=== PATIENT | male | born 1945 | race Caucasian/White ===

== ENCOUNTER 2018-06-12 07:20 | Inpatient (IN) ==
[2018-06-12] MEDS ORDERED: ONDANSETRON 4 MG/2 ML VIAL IV STA (07:45)
[2018-06-12] MEDS ORDERED: HYDROmorphone 2 MG/1 ML VIAL IV STA (07:45)
[2018-06-12] MEDS ORDERED: ALBUTEROL 2.5 MG/3 ML NEB RESP TX STA (07:47)
[2018-06-12 09:09] LABS: Basophils % 0.2 % (0.0-0.8); Hematocrit 48.2 VOL% (42.0-52.0); Hemoglobin 16.3 GM/DL (14.0-18.0); Immature Granulocytes % 0.5 %; Immature Granulocytes Absolute 0.06 #; Lymphocytes # 0.6 10*3/uL (1.4-4.0); Lymphocytes % 4.8 % (21.2-54.2); Mean Corpuscular HGB Conc 33.8 GM/DL (32-36); Mean Corpuscular Hemoglobin 31 PG (27-34); Mean Corpuscular Volume 91.5 FL (87-102); Mean Platelet Volume 9.6 FL (9.6-12.0); Monocytes # 0.6 10*3/uL (0.11-0.8); Monocytes % 4.5 % (1.7-12.7); Neutrophils # 11.7 10*3/uL (1.4-7.4); Platelet Count 175 T/CUMM (130-400); Red Blood Count 5.27 MC/CUMM (3.8-5.5); Red Cell Distribution Width 13.2 % (9.3-17.3)
[2018-06-12 09:21] LABS: INR 3.5
[2018-06-12 09:22] LABS: PT Patient Result 35.2 SECS
[2018-06-12 09:30] LABS: Band Neutrophils 2 % (0-10); Lymphocytes 5 % (20-55); Segmented Neutrophils 91 % (50-85); Total Cells Counted 100
[2018-06-12 09:31] LABS: Calcium 8.8 MG/DL (8.5-10.1); Hypochromasia 1+; Microcytosis Slight; Osmolality,Calculated 261.7 MOS/KG (273-304); Ovalocytes Slight; Platelet Estimate Adequate; Total Protein 7.8 G/DL (6.4-8.3)
[2018-06-12] MEDS ORDERED: cefTRIAXone 1,000 MG in SODIUM CHLORIDE 0.9% 100 ML IV STA (09:37)
[2018-06-12] MEDS ORDERED: ACETAMINOPHEN 325 MG TABLET PO PRN (11:46)
[2018-06-12] MEDS ORDERED: traZODone 50 MG TABLET PO PRN (11:46)
[2018-06-12] MEDS ORDERED: NICOTINE 21 MG/24 HR PATCH TRANSDERM PRN (11:46)
[2018-06-12] MEDS ORDERED: BISACODYL 5 MG TABLET PO PRN (11:46)
[2018-06-12] MEDS ORDERED: guaiFENesin/DM ER 600-30 MG TABLET PO PRN (11:46)
[2018-06-12 11:50] LABS: Apearance,Urine CLEAR (Clear); Bilirubin,Urine Negative (Negative); Blood, Urine Negative (Negative); Glucose,Urine (UA) Negative (Negative); Ketones,Urine Negative (Negative); Mucus,Urine Occasional /LPF (Occasional); Nitrite,Urine Negative (Negative); Protein,Urine 30 MG/DL; RBC,Urine <1 /HPF (0-4); Urine Color Straw (Yellow); Urine Specific Gravity 1.006 (1.001-1.035); Urine Urobilinogen < 2.0 EU/DL (0.2-1.0); WBC,Urine <1 /HPF (0-6)
[2018-06-12] MEDS: ALBUTEROL/IPRATROPIUM 3 ML NEB RESP TX SCH ×2 (13:05→19:25)
[2018-06-12] MEDS: MAGNESIUM OXIDE 400 MG TABLET PO SCH ×2 (14:46→20:49)
[2018-06-12] MEDS ORDERED: BUMETANIDE 1 MG TABLET PO SCH (16:00)
[2018-06-12] MEDS ORDERED: CARVEDILOL 12.5 MG TABLET PO SCH (17:00)
[2018-06-12] MEDS ORDERED: ALBUTEROL/IPRATROPIUM 3 ML NEB RESP TX SCH (19:00)
[2018-06-12] MEDS ORDERED: ATORVASTATIN 20 MG TABLET PO SCH (21:00)
[2018-06-13] MEDS: ALBUTEROL/IPRATROPIUM 3 ML NEB RESP TX SCH ×2 (00:24→07:00)
[2018-06-13] MEDS ORDERED: PROPOFOL 1,000 MG/100 ML BOTTLE IV ONE (05:04)
[2018-06-13 05:49] LABS: Basophils % 0.3 % (0.0-0.8); Eosinophils % 0.1 % (0.00-10.9); Hematocrit 45.7 VOL% (42.0-52.0); Hemoglobin 13.9 GM/DL (14.0-18.0); Immature Granulocytes % 1.5 %; Lymphocytes % 28.9 % (21.2-54.2); Mean Corpuscular HGB Conc 30.4 GM/DL (32-36); Mean Corpuscular Hemoglobin 30 PG (27-34); Mean Corpuscular Volume 98.3 FL (87-102); Mean Platelet Volume 10.8 FL (9.6-12.0); Monocytes # 0.9 10*3/uL (0.11-0.8); Monocytes % 6.4 % (1.7-12.7); Neutrophils # 8.7 10*3/uL (1.4-7.4); Neutrophils % 62.8 % (38.7-73.9); Platelet Count 135 T/CUMM (130-400); Red Blood Count 4.65 MC/CUMM (3.8-5.5); Red Cell Distribution Width 13.7 % (9.3-17.3); White Blood Count 13.8 T/CUMM (4-12)
[2018-06-13 05:51] LABS: ABG HCO3 16.6 MMOL/L (20-26); ABG Oxygen Saturation 95.8 % (95-100); ABG PCO2 54.1 MM HG (35-48); ABG TCO2 17.6 MMOL/L (23-27)
[2018-06-13] MEDS ORDERED: ASPIRIN EC 325 MG TABLET PO ONE ×2 (05:53→06:30)
[2018-06-13 05:54] LABS: ABG PH 7.168 (7.35-7.45)
[2018-06-13] MEDS ORDERED: SODIUM BICARBONATE 50 MEQ/50 ML SYRINGE IV ONE (05:54)
[2018-06-13 06:01] LABS: Calcium 8.8 MG/DL (8.5-10.1); Osmolality,Calculated 264.8 MOS/KG (273-304)
[2018-06-13] MEDS ORDERED: DOPamine 800 MG/250 ML PREMIX IV PRN (06:20)
[2018-06-13] MEDS ORDERED: SODIUM CHLORIDE 0.9% 1,000 ML IV ONE ×2 (06:20→06:50)
[2018-06-13] MEDS ORDERED: NOREPINEPHRINE 8 MG in SODIUM CHLORIDE 0.9% 242 ML IV PRN (06:20)
[2018-06-13] MEDS ORDERED: NOREPINEPHRINE 4 MG/4 ML VIAL IV ONE ×2 (06:27→10:12)
[2018-06-13] MEDS ORDERED: fentaNYL 100 MCG/2 ML VIAL IV ONE (06:30)
[2018-06-13] MEDS ORDERED: PROPOFOL 1,000 MG/100 ML BOTTLE IV SCH (06:30)
[2018-06-13] MEDS ORDERED: PIPERACILLIN/TAZOBACTAM 3,375 MG in SODIUM CHLORIDE 0.9% 100 ML IV SCH (06:30)
[2018-06-13] MEDS ORDERED: SODIUM BICARB INJ 150 MEQ in STERILE WATER INJ 850 ML IV SCH (07:00)
[2018-06-13 07:09] LABS: ABG Base Excess -1.9 MMOL/L (-2.5-2.5); ABG HCO3 22.7 MMOL/L (20-26); ABG Oxygen Saturation 92.1 % (95-100); ABG PCO2 63.3 MM HG (35-48); ABG PH 7.246 (7.35-7.45); ABG TCO2 24.1 MMOL/L (23-27)
[2018-06-13] MEDS ORDERED: DEXMEDETOMIDINE 200 MCG in SODIUM CHLORIDE 0.9% 48 ML IV PRN (07:15)
[2018-06-13] MEDS ORDERED: fentaNYL INJ 1,250 MCG in SODIUM CHLORIDE 0.9% 225 ML IV PRN (07:16)
[2018-06-13] MEDS ORDERED: PHENYLEPHRINE DRIP 40 MG/250 ML PREMIX IV ONE (07:20)
[2018-06-13 07:24] VITALS: BP 128/87
[2018-06-13] MEDS ORDERED: methylPREDNISolone SOD SUC 40 MG/1 ML VIAL IV SCH (07:30)
[2018-06-13 08:13] LABS: ABG Base Excess 0.5 MMOL/L (-2.5-2.5); ABG HCO3 27.4 MMOL/L (20-26); ABG Oxygen Saturation 69.1 % (95-100); ABG PH 7.332 (7.35-7.45); ABG PO2 46.5 MM HG (80-95); ABG TCO2 29.1 MMOL/L (23-27)
[2018-06-13] MEDS ORDERED: HALOPERIDOL 5 MG/ML AMP IV SCH (09:00)
[2018-06-13] MEDS ORDERED: MULTIVITAMIN (CENTRUM) TABLET PO SCH (09:00)
[2018-06-13] MEDS ORDERED: LISINOPRIL 10 MG TABLET PO SCH (09:00)
[2018-06-13] MEDS ORDERED: CITALOPRAM 40 MG TABLET PO SCH (09:00)
[2018-06-13] MEDS ORDERED: POTASSIUM CHLORIDE 20 MEQ PACK PO SCH (09:00)
[2018-06-13] MEDS ORDERED: LORazepam 1 MG TABLET PO SCH (09:00)
[2018-06-13] MEDS ORDERED: amLODIPine 5 MG TABLET PO SCH (09:00)
[2018-06-13] MEDS ORDERED: PANTOPRAZOLE 40 MG TABLET PO SCH (09:00)
[2018-06-13] MEDS ORDERED: PANTOPRAZOLE 40 MG VIAL IV SCH (09:30)
[2018-06-13] MEDS ORDERED: POTASSIUM CHLORIDE RIDER 10 MEQ in PREMIX 1 EACH IV PRN (09:33)
[2018-06-13] MEDS ORDERED: MAGNESIUM SULF RIDER 2 GM in PREMIX 1 EACH IV PRN (09:33)
[2018-06-13] MEDS ORDERED: POTASSIUM CHLORIDE RIDER 20 MEQ in PREMIX 1 EACH IV PRN (09:33)
[2018-06-13] MEDS ORDERED: MAGNESIUM SULF RIDER 4 GM in PREMIX 1 EACH IV PRN (09:33)
[2018-06-13] MEDS ORDERED: CISATRACURIUM 200 MG in SODIUM CHLORIDE 0.9% 180 ML IV SCH (10:00)
[2018-06-13 10:02] LABS: INR 4.1
[2018-06-13 10:09] LABS: Partial Thromboplastin Time 40.8 SECS (0-40)
[2018-06-13] MEDS ORDERED: PHENYLEPHRINE DRIP 40 MG/250 ML PREMIX IV PRN (10:10)
[2018-06-13] MEDS ORDERED: MINERAL OIL/PETROLATUM OPH OINT 3.5 GM TUBE BOTH EYES PRN (10:11)
[2018-06-13 10:13] LABS: Albumin 2.6 G/DL (3.4-5.0); Bilirubin,Total 1.1 MG/DL (0.2-1.0); Calcium 7.6 MG/DL (8.5-10.1); Osmolality,Calculated 277.2 MOS/KG (273-304); Potassium 3.7 MMOL/L (3.5-5.1); Total Protein 5.9 G/DL (6.4-8.3)
[2018-06-13 10:16] LABS: PT Patient Result 41.5 SECS
[2018-06-13 10:17] LABS: CKMB % 3.6 %
[2018-06-13] MEDS ORDERED: NOREPINEPHRINE 16 MG in SODIUM CHLORIDE 0.9% 234 ML IV PRN (10:28)
[2018-06-13] MEDS ORDERED: MIDAZOLAM 100 MG in SODIUM CHLORIDE 0.9% 80 ML IV SCH (10:30)
[2018-06-13] MEDS ORDERED: POTASSIUM CHLORIDE RIDER 100 ML IV PRN (10:40)
[2018-06-13] MEDS ORDERED: INSULIN REGULAR 100 UNIT/ML IV SCH (12:00)
[2018-06-13] MEDS ORDERED: DIGOXIN 0.125 MG TABLET PO SCH (13:00)
[2018-06-14] MEDS ORDERED: ASPIRIN CHEW 81 MG TABLET PO SCH (09:00)
== END 2018-06-13 11:55 | disposition expired ==
LOC: N.ED 07:20 → N.EDINP 07:20 → SUATTDRO 11:46 → N.2E 13:18 → N.ICU 06-13 05:14
PROVIDERS: ADMIT Internal Medicine; ATTEND Internal Medicine